=== PATIENT | male | born 1980 | race African-American/Black ===

== ENCOUNTER 2020-08-14 17:25 | Emergency (ER) | payer SELFPAY ==
[~2020-08-14] VITALS: Ht 188 cm; Wt 95.3 kg
--- NOTE | 2020-08-14 19:10 | NUR ---
Pte came to ER ambulatory c/o abdiminal blooting when the patient eat some kind of food like oil and soda .
--- NOTE | 2020-08-14 19:20 | Emergency Room Report ---
History of Present Illness General Chief Complaint: Abdominal Pain Source: Patient Present Illness HPI Disclaimer: Please note that this report is being documented using DRAGON technology. This can lead to erroneous entry secondary to incorrect interpretation by the dictating instrument. HPI: 40-year-old male presents for evaluation of epigastric discomfort. Symptoms been present for several months. He reports some abdominal bloating, increased belching, pain after drinking coffee. Sometimes worse laying down. He will feel it radiating into chest sometimes but not currently. Describes it as a burning sensation. Has been taking Gas-X with minimal relief. Denies nausea, vomiting, diarrhea, chest pain, shortness of breath, fever, chills or other symptoms. Symptoms started to get worse yesterday after eating [place] food. PMH: Diabetes PSH: Reviewed Allergies: Reviewed Social Hx: Reviewed Allergies: Coded Allergies: No Known Allergies (Unverified , 08/14/20) COVID-19 Screening Contact w/high risk pt: No Experienced COVID-19 symptoms?: No COVID-19 Testing performed [employer]: Yes - 10 days ago COVID-19 Screening: Negative COVID-19 COVID-19 Testing Source: na Nursing Documentation-PMH Hx Diabetes: Yes - he take metformin Review of Systems All Other Systems: negative except mentioned in HPI Physical Exam Vital Signs Date Time Temp Pulse Resp B/P (MAP) Pulse Ox O2 Delivery O2 Flow Rate FiO2 08/14/20 19:03 97.5 78 18 123/78 (93) 96 Room Air General: Awake and alert, no acute distress HEENT: NC/AT. EOMI. Cardiovascular: RRR. S1 and S2 normal. No murmur appreciated Resp: Normal work of breathing. No cough, wheezing or crackles appreciated Abdomen: Abdomen is soft, nondistended. Nontender Skin: Intact. No abrasions, laceration or rash over the exposed skin MSK: Normal tone and bulk. Moving all extremities. No obvious deformity. Neuro: Awake and alert. Mentating appropriately. Medical Decision Making Diagnostic Impression: Primary Impression: GERD (gastroesophageal reflux disease) ER Course 40-year-old male presents for epigastric discomfort after eating for several months. Most consistent with acid reflux disease. Belly is benign. The patient has no discomfort at this time. Asking for a prescription to make him feel better. Patient received a GI cocktail and symptoms resolved. Belly remained soft. Do not believe he requires emergent labs or imaging at this time. Likely because his diet is on the heavy side as he is on vacation. Instructed to limit his intake of caffeine, dark chocolate, fatty and greasy foods. Will start on Pepcid and Maalox. Instructed to return with new or worsening symptoms. Last Vital Signs Date Time Temp Pulse Resp B/P (MAP) Pulse Ox O2 Delivery O2 Flow Rate FiO2 08/14/20 19:03 97.5 78 18 123/78 (93) 96 Room Air Disposition: HOME, SELF-CARE Condition: Improved Scripts Famotidine* (Pepcid 20mg tablet*) 20 Mg Tablet 20 MG ORAL DAILY for Gerd, #30 TAB 0 Refills Prov: Salvador Baum MD 08/14/20 Mag Hydrox/Al Hydrox/Simeth (MAALOX MAXIMUM STRENGTH SUSP) 355 Ml Oral.susp 15 ML PO TID, #355 ML Prov: Salvador Baum MD 08/14/20 Salvador Baum MD Aug 14, 2020 19:19
[2020-08-14 19:27] VITALS: BP 129/77
[2020-08-14] MEDS ORDERED: Mylanta II UD 30ml ORAL ONE (19:30)
[2020-08-14] MEDS ORDERED: Lidocaine 2% Visc 15ml soln ORAL ONE (19:30)
[2020-08-14] MEDS ORDERED: Dicyclomine HCl 10mg/5ml oral soln ORAL ONE (19:30)
[2020-08-14] MEDS ORDERED: FAMOTIDINE20 MG ORAL (19:42)
[2020-08-14] MEDS ORDERED: MAALOX MAXIMUM355 M1 PO (19:42)
[2020-08-14 20:32] VITALS: BP 118/78
--- NOTE | 2020-08-14 20:32 | NUR ---
ER DISCHARGE NOTE: Patient is cleared to be discharged per ERMD, pt is aox4, on room air, with stable vital signs. pt was given dc and prescription instructions, pt was able to verbalize understanding, pt id band removed without complications. pt is able to ambulate with steady gait. pt took all belongings.
== END 2020-08-14 20:32 | disposition home or self-care (01) ==
LOC: EMR 19:30
DX: K21.9 Gastro-esophageal reflux disease without esophagitis (principal); E11.9 Type 2 diabetes mellitus without complications; Z79.84 Long term (current) use of oral hypoglycemic drugs
CPT/HCPCS: 99282